=== PATIENT | male | born 1975 | race Two or more races ===

== ENCOUNTER 2022-06-15 13:41 | Emergency (ER) | payer SELFPAY ==
[~2022-06-15] VITALS: Ht 165.1 cm; Wt 99.0 kg
[2022-06-15 13:50] VITALS: BP 143/96
== END 2022-06-15 16:03 | disposition left against medical advice (07) ==
LOC: ER 13:41
DX: H57.89 Other specified disorders of eye and adnexa (principal); Z53.21 Procedure and treatment not carried out due to patient leaving prior to being seen by health care provider